=== PATIENT | male | born 1955 | race Caucasian/White ===

== ENCOUNTER → 2017-02-15 | Outpatient (CLI) | payer MEDICAID ==
[~2017-02-15] MED LIST: ASPI81TA27 PO; BACL10TA PO; CAR3125T PO; CLOP75TA28 PO; DULO20CA PO; ESOM20CA PO; FENT25DI2 TD; HYDR-4683 PO; HYDR12.56 PO; LISI2.5T47 PO; ONDA4TAB5 PO; RANO500T2 PO; ROSU5TAB5 PO; TAMS0.4C36 PO; TERA1CAP33 PO
== END | disposition home or self-care (01) ==
LOC: LAB 09:23
PROVIDERS: ATTEND Internal Medicine Pulmonary Disease
DX: J84.2 Lymphoid interstitial pneumonia (principal); Z79.899 Other long term (current) drug therapy
CPT/HCPCS: 36415; 84439; 84443

== ENCOUNTER → 2017-02-15 | Outpatient (CLI) | payer MEDICAID ==
[~2017-02-15] MED LIST changes: +ALBUTEROL SULF 2.5 MG/0.5ML(0.5%) NEB SOLN ONE
== END | disposition home or self-care (01) ==
LOC: RT 09:10
PROVIDERS: ATTEND Internal Medicine Pulmonary Disease
DX: J84.2 Lymphoid interstitial pneumonia (principal); R94.2 Abnormal results of pulmonary function studies
CPT/HCPCS: 94060

== ENCOUNTER 2017-02-23 16:34 | Inpatient (IN) | payer MEDICAID ==
[~2017-02-23] VITALS: Ht 1 cm; Wt 100.0 kg
[~2017-02-23 16:34] MED LIST changes: -ALBUTEROL SULF 2.5 MG/0.5ML(0.5%) NEB SOLN ONE
[2017-02-23] MEDS ORDERED: ONDANSETRON ODT 4 MG TAB PO PRN (18:15)
[2017-02-23 18:19] VITALS: BP 153/74
[2017-02-23] MEDS ORDERED: INFLUENZA QUAD 2017-2018 0.5 ML SYRG IM ONE (18:45)
[2017-02-23 19:02] LABS: Basophils # (auto) 0 uL; Basophils % (auto) 0.4 % (0.0-2.0); Eosinophils # (auto) 0 uL; Hematocrit 40.2 % (41.0-53.0); Hemoglobin 13.8 g/dL (13.5-17.5); Lymphocytes # (auto) 0.7 uL; Lymphocytes % (auto) 11.1 % (10.0-50.0); Mean Corpuscular Hemoglobin 29.2 pg (28.0-32.0); Mean Corpuscular Hgb Conc. 34.4 g/dL (32.0-36.0); Mean Corpuscular Volume 84.9 fL (80.0-100.0); Monocytes # (auto) 0.3 uL; Monocytes % (auto) 3.9 % (0.0-12.0); Neutrophils # (auto) 5.4 uL; Neutrophils % (auto) 84.6 % (37.0-80.0); Nucleated Red Blood Cells % 0.1 %; Platelet Count (auto) 218 10^3/uL (140-450); Red Blood Cells 4.73 10^6/uL (4.5-5.90); Red Cell Distribution Width 15.3 % (11.8-14.3); White Blood Cell 6.4 10^3/uL (4.4-10.8)
[2017-02-23 19:15] LABS: Albumin 3.5 g/dL (3.4-5.0); BUN/Creatinine Ratio 26.1; Calcium 8.9 mg/dL (8.5-10.1); Potassium 3.9 mmol/L (3.5-5.1)
[2017-02-23 19:17] LABS: Bilirubin, Total 0.9 mg/dL (0.2-1.0); Total Protein 6.5 g/dL (6.4-8.2)
[2017-02-23 21:17] LABS: Urine Amorphous Crystal FEW /hpf (None Seen); Urine Bacteria NONE SEEN /hpf (None Seen); Urine Blood Negative /uL (Negative); Urine Specific Gravity 1.023 (1.001-1.035); Urine WBC <1 /hpf (0 - 3)
[2017-02-23] MEDS: BACLOFEN 10 MG TAB PO SCH (21:48)
[2017-02-23] MEDS: DULoxetine HCL 30 MG CAP PO SCH (21:48)
[2017-02-23] MEDS: CARVEDILOL 3.125 MG TAB PO SCH (21:50)
[2017-02-23 22:00] VITALS: BP 162/77
[2017-02-23] MEDS ORDERED: TERAZOSIN HCL 1 MG CAP PO SCH (22:00)
[2017-02-24 04:51] VITALS: BP_SYST 119; BP_SYST 169; BP_DIAS 66; BP_DIAS 76
[2017-02-24] MEDS ORDERED: FURO20TA PO (05:26)
[2017-02-24] MEDS ORDERED: PRE1T PO (05:26)
[2017-02-24] MEDS: HYDROcodone-ACET 10/325MG TAB PO PRN ×2 (08:19→17:16)
[2017-02-24 09:24] VITALS: BP 160/85
[2017-02-24 09:38] VITALS: BP 174/87
[2017-02-24] MEDS ORDERED: LISINOPRIL 5 MG TAB PO SCH (10:00)
[2017-02-24] MEDS ORDERED: ASPirin 81 mg TAB PO SCH (10:00)
[2017-02-24] MEDS ORDERED: predniSONE 5 MG TAB PO SCH (10:00)
[2017-02-24] MEDS ORDERED: predniSONE 20 MG TAB PO SCH (10:00)
[2017-02-24] MEDS ORDERED: CLOPIDOGREL BISULFATE 75 MG TAB PO SCH (10:00)
[2017-02-24] MEDS: BACLOFEN 10 MG TAB PO SCH (10:03)
[2017-02-24] MEDS: DULoxetine HCL 30 MG CAP PO SCH (10:04)
[2017-02-24] MEDS: CARVEDILOL 3.125 MG TAB PO SCH (10:06)
[2017-02-24 17:28] VITALS: BP 135/73
[2017-02-24 17:37] VITALS: BP 174/74
[2017-02-24] MEDS ORDERED: LABETALOL HCL 200 MG TAB PO ONE (17:45)
[2017-02-24] MEDS ORDERED: TAMSULOSIN HYDROCHLORIDE 0.4 MG CAP PO SCH (18:00)
[2017-02-24 18:16] VITALS: BP 166/92
== END 2017-02-24 19:00 | disposition home or self-care (01) | DRG 142 ==
LOC: WEST WING 16:34
PROVIDERS: ADMIT Internal Medicine Pulmonary Disease; ATTEND Internal Medicine Pulmonary Disease
DX: J84.17 Other interstitial pulmonary diseases with fibrosis in diseases classified elsewhere (principal); E87.1 Hypo-osmolality and hyponatremia; I10 Essential (primary) hypertension; R61 Generalized hyperhidrosis; Z23 Encounter for immunization; R73.9 Hyperglycemia, unspecified
CPT/HCPCS: 36415; 71020; 80053; 81001; 85025; 87040; 87081

== ENCOUNTER → 2017-04-13 | Outpatient (CLI) | payer MEDICAID ==
[~2017-04-13] MED LIST changes: -ESOM20CA PO; +FURO20TA PO; -HYDR12.56 PO; +PRE1T PO; -TERA1CAP33 PO
== END | disposition home or self-care (01) ==
LOC: RT 11:00
PROVIDERS: ATTEND Internal Medicine Pulmonary Disease
DX: J84.2 Lymphoid interstitial pneumonia (principal)
CPT/HCPCS: 94620